=== PATIENT | female | born 1990 | race Caucasian/White ===

== ENCOUNTER → 2016-08-05 | Outpatient (REF) | payer OTHER ==
[~2016-08-05] MED LIST: ACET50TA PO; IBUP60TA PO; PRENTAB40 PO
== END ==
LOC: M LAB REF 17:16
PROVIDERS: ATTEND Advanced Practice Midwife
DX: Z12.4 Encounter for screening for malignant neoplasm of cervix (principal)

== ENCOUNTER → 2016-08-05 | Outpatient (REF) | payer OTHER ==
[2016-08-05 11:30] LABS: ALBUMIN 4.2 GM/DL (3.2-5.2); ALBUMIN/GLOBULIN RATIO 1.24 (1.00-1.93); ALKALINE PHOSPHATASE 63 U/L (45-117); ALT/SGPT 21 U/L (12-78); ANION GAP 9 MEQ/L (8-16); AST/SGOT 11 U/L (15-37); BILIRUBIN,TOTAL 0.7 MG/DL (0.2-1.0); BLOOD UREA NITROGEN 11 MG/DL (7-18); CALCIUM LEVEL 8.9 MG/DL (8.5-10.1); CARBON DIOXIDE LEVEL 26 MEQ/L (21-32); CHLORIDE LEVEL 104 MEQ/L (98-107); CHOLESTEROL LEVEL 154 MG/DL (<200); FREE T4 1.15 NG/DL (0.76-1.46); GLOMERULAR FILTRATION RATE > 60.0 (>60); GLUCOSE, FASTING 90 MG/DL (70-105); POTASSIUM SERUM 3.4 MEQ/L (3.5-5.1); SODIUM LEVEL 139 MEQ/L (136-145); TOTAL PROTEIN 7.6 GM/DL (6.4-8.2); TRIGLYCERIDES LEVEL 80 MG/DL (<150)
== END ==
LOC: M SFHCCLAY 08:42
PROVIDERS: ATTEND Family Medicine
DX: Z00.00 Encounter for general adult medical examination without abnormal findings (principal)

== ENCOUNTER → 2016-08-11 | Outpatient (CLI) | payer OTHER ==
[2016-08-11 21:29] LABS: ESTRADIOL 24.3 PG/ML; LUTEINIZING HORMONE 3.4 mIU/mL; PROLACTIN 4.8 NG/ML
[2016-08-11 21:30] LABS: FOLLICLE STIMULATING HORMONE 7.1 mIU/mL
== END ==
LOC: M WUC 16:59
PROVIDERS: ATTEND Advanced Practice Midwife
DX: N92.6 Irregular menstruation, unspecified (principal)

== ENCOUNTER → 2016-08-29 | Outpatient (CLI) | payer OTHER | LOC: M WUC 16:06 | PROVIDERS: ATTEND Advanced Practice Midwife | DX: N92.6 Irregular menstruation, unspecified (principal) ==

== ENCOUNTER → 2016-09-08 | Outpatient (REF) | payer OTHER ==
[2016-09-08 14:15] LABS: ALBUMIN 3.9 GM/DL (3.2-5.2); ALBUMIN/GLOBULIN RATIO 1.22 (1.00-1.93); ALKALINE PHOSPHATASE 70 U/L (45-117); ALT/SGPT 26 U/L (12-78); ANION GAP 8 MEQ/L (8-16); AST/SGOT 22 U/L (15-37); BILIRUBIN,TOTAL 0.3 MG/DL (0.2-1.0); BLOOD UREA NITROGEN 15 MG/DL (7-18); CARBON DIOXIDE LEVEL 26 MEQ/L (21-32); CHLORIDE LEVEL 108 MEQ/L (98-107); CREATININE FOR GFR 0.82 MG/DL (0.55-1.02); GLOMERULAR FILTRATION RATE > 60.0 (>60); GLUCOSE, FASTING 83 MG/DL (70-105); POTASSIUM SERUM 4.4 MEQ/L (3.5-5.1); SODIUM LEVEL 142 MEQ/L (136-145); TOTAL PROTEIN 7.1 GM/DL (6.4-8.2)
[2016-09-08 14:18] LABS: BASO % 0.3 % (0.0-1.0); EOS # 0.1 K/mm3 (0.0-0.50); EOS % 2.4 % (0.0-3.0); LARGE UNSTAINED CELL # 0.1 K/mm3 (0.0-0.4); LARGE UNSTAINED CELL % 1.9 % (0.0-4.0); LYMPH # 1.6 K/mm3 (1.5-6.5); LYMPH % 29.5 % (24.0-44.0); MEAN CORPUSCULAR HGB CONC 33.6 g/dl (32.0-36.5); MEAN CORPUSCULAR VOLUME 92.5 fl (80.0-96.0); MONO # 0.3 K/mm3 (0.0-0.8); MONO % 5.4 % (0.0-5.0); NEUTROPHILS # 3.2 K/mm3 (1.8-7.7); NEUTROPHILS % 60.4 % (36.0-66.0); PLATELET COUNT, AUTOMATED 219 k/mm3 (150-450); RED CELL DISTRIBUTION WIDTH 12.5 % (11.5-14.5); WHITE BLOOD COUNT 5.2 K/mm3 (4.0-10.0)
[2016-09-08 15:12] LABS: ERYTHROCYTE SEDIMENTATION RATE 4 mm/hr (0-20)
== END ==
LOC: M LABNEURO 10:01
PROVIDERS: ATTEND Psychiatry & Neurology Neurology
DX: R56.9 Unspecified convulsions (principal)

== ENCOUNTER → 2017-01-26 | Outpatient (CLI) | payer OTHER | LOC: M SMT 13:06 | PROVIDERS: ATTEND Advanced Practice Midwife | DX: O20.0 Threatened abortion (principal) ==

== ENCOUNTER → 2017-01-28 | Outpatient (CLI) | payer OTHER | LOC: M SMT 10:13 | PROVIDERS: ATTEND Advanced Practice Midwife | DX: O20.0 Threatened abortion (principal) ==

== ENCOUNTER → 2017-03-11 | Outpatient (CLI) | payer OTHER ==
[2017-03-11 12:56] LABS: BASO % 0.4 % (0.0-1.0); EOS # 0.1 K/mm3 (0.0-0.50); EOS % 1.4 % (0.0-3.0); LARGE UNSTAINED CELL # 0.1 K/mm3 (0.0-0.4); LARGE UNSTAINED CELL % 1.9 % (0.0-4.0); LYMPH # 1.6 K/mm3 (1.5-6.5); LYMPH % 32.9 % (24.0-44.0); MEAN CORPUSCULAR HEMOGLOBIN 30.6 pg (27.0-33.0); MEAN CORPUSCULAR HGB CONC 33.8 g/dl (32.0-36.5); MEAN CORPUSCULAR VOLUME 90.6 fl (80.0-96.0); MONO # 0.3 K/mm3 (0.0-0.8); MONO % 5.3 % (0.0-5.0); NEUTROPHILS # 2.9 K/mm3 (1.8-7.7); PLATELET COUNT, AUTOMATED 210 k/mm3 (150-450); RED CELL DISTRIBUTION WIDTH 12.2 % (11.5-14.5); WHITE BLOOD COUNT 4.9 K/mm3 (4.0-10.0)
[2017-03-11 14:12] LABS: HBsAg Prenatal NEGATIVE (NEGATIVE)
== END ==
LOC: M SMT 08:36
PROVIDERS: ATTEND Advanced Practice Midwife
DX: Z34.81 Encounter for supervision of other normal pregnancy, first trimester (principal)

== ENCOUNTER → 2017-06-05 | Outpatient (CLI) | payer OTHER ==
--- NOTE | 2017-06-05 16:25 | REP ---
Clinical: Anatomical evaluation. Comparison: None . Findings: Examination demonstrates a single live intrauterine in breech presentation. motion is identified by technologist. Placenta is noted anteriorly and grade zero without evidence for placenta previa or abruption. Amniotic fluid volume is normal. Cervix measures 4.2 cm in length and appears closed. No evidence for nuchal cord. Gestational age by current measurements 19 weeks 6 days with LANI 10/24/2017 . FHR equals 150 beats per minute. BPD 4.8 cm 20 weeks 3 days HC 17.3 cm 19 weeks 6 days AC 14.0 cm 19 weeks 3 days FL 3.3 cm 20 weeks 2 days HL 3.1 cm 20 weeks 1 day HC/AC ratio 1.24 Estimated weight 315 grams ( 47th percentile). Anatomical assessment demonstrates normal structures including cranium, choroid plexus, cavum, cerebellum/posterior fossa, nose and lips, lungs, four-chamber heart/ventricular outflow tracts, diaphragm, stomach, cord insertion/three-vessel cord, kidneys/bladder, spine, and extremities. Impression: Single live intrauterine in breech presentation demonstrating appropriate interval growth. Anatomical assessment is essentially complete and normal. (Limited evaluation of the facial profile noted.) Signed by Shai Zaragoza MD 06/05/2017 04:17 P
== END ==
LOC: M SMT 14:56
PROVIDERS: ATTEND Advanced Practice Midwife
DX: Z34.82 Encounter for supervision of other normal pregnancy, second trimester (principal); Z3A.19 19 weeks gestation of pregnancy

== ENCOUNTER → 2017-07-10 | Outpatient (CLI) | payer OTHER ==
--- NOTE | 2017-07-10 16:11 | REP ---
Clinical: Anatomical evaluation. Comparison: 06/05/2017 . Findings: Examination demonstrates a single live intrauterine in three presentation. motion is identified by technologist. Placenta is noted anteriorly and grade one without evidence for placenta previa or abruption. Amniotic fluid volume is normal. Cervix measures 5.3 cm in length and appears closed. No evidence for nuchal cord. Gestational age by LMP 24 weeks 6 days with LANI 10/24/2017 . Gestational age by current measurements 25 weeks 2 days with LANI 10/21/2017 . FHR equals 150 beats per minute. Estimated weight 824 grams ( 65th percentile). Anatomical assessment demonstrates normal structures including cranium, choroid plexus, cavum, cerebellum/posterior fossa, facial features, lungs, ventricular outflow tracts, diaphragm, stomach, cord insertion/three-vessel cord, kidneys/bladder, spine, and extremities. Impression: Single live intrauterine in breech presentation demonstrating appropriate interval growth. In conjunction with prior examination anatomical assessment is complete and normal. Signed by Shai Zaragoza MD 07/10/2017 04:04 P
== END ==
LOC: M SMT 15:01
PROVIDERS: ATTEND Advanced Practice Midwife
DX: Z34.82 Encounter for supervision of other normal pregnancy, second trimester (principal); Z3A.24 24 weeks gestation of pregnancy

== ENCOUNTER → 2017-08-03 | Outpatient (CLI) | payer OTHER ==
[2017-08-03 19:41] LABS: HEMATOCRIT 36.5 % (36.0-47.0); HEMOGLOBIN 12.1 g/dl (12.0-16.0); MEAN CORPUSCULAR HEMOGLOBIN 31.4 pg (27.0-33.0); MEAN CORPUSCULAR HGB CONC 33.2 g/dl (32.0-36.5); MEAN CORPUSCULAR VOLUME 94.8 fl (80.0-96.0); PLATELET COUNT, AUTOMATED 229 10^3/uL (150-450); RED BLOOD COUNT 3.85 10^6/uL (4.00-5.40); RED CELL DISTRIBUTION WIDTH 13.1 % (11.5-14.5); WHITE BLOOD COUNT 9.4 10^3/uL (4.0-10.0)
[2017-08-03 21:18] LABS: GLUCOSE CHALLENGE TEST 1 HOUR 97 MG/DL (LESS THAN 140)
[2017-08-04 08:45] LABS: TYPE AND SCREEN 1 1
== END ==
LOC: M WUC 14:56
PROVIDERS: Family Medicine
DX: Z34.82 Encounter for supervision of other normal pregnancy, second trimester (principal); Z3A.00 Weeks of gestation of pregnancy not specified
CPT/HCPCS: 82950

== ENCOUNTER 2017-08-21 11:54 | Outpatient (CLI) | payer OTHER | END 2017-08-21 12:51 | disposition home or self-care (01) | LOC: M LDO 11:54 | DX: O22.13 Genital varices in pregnancy, third trimester (principal); Z3A.29 29 weeks gestation of pregnancy ==

== ENCOUNTER → 2017-09-07 | Outpatient (REF) | payer OTHER | LOC: M LAB REF 14:53 | DX: J10.1 Influenza due to other identified influenza virus with other respiratory manifestations (principal) ==

== ENCOUNTER → 2017-10-09 | Outpatient (REF) | payer OTHER | LOC: M LAB REF 17:19 | DX: Z34.83 Encounter for supervision of other normal pregnancy, third trimester (principal) ==

== ENCOUNTER 2017-11-01 09:53 | Inpatient (IN) | payer OTHER ==
[2017-11-01] MEDS: LACTATED RINGER'S 1000 ML IV (10:20)
[2017-11-01 10:49] LABS: HEMATOCRIT 35.3 % (36.0-47.0); HEMOGLOBIN 12.3 g/dl (12.0-15.5); MEAN CORPUSCULAR HEMOGLOBIN 30.9 pg (27.0-33.0); MEAN CORPUSCULAR HGB CONC 34.8 g/dl (32.0-36.5); MEAN CORPUSCULAR VOLUME 88.7 fl (80.0-96.0); PLATELET COUNT, AUTOMATED 160 10^3/uL (150-450); RED BLOOD COUNT 3.98 10^6/uL (4.00-5.40); RED CELL DISTRIBUTION WIDTH 13.4 % (11.5-14.5); WHITE BLOOD COUNT 7.3 10^3/uL (4.0-10.0)
[2017-11-01] MEDS ORDERED: FENTANYL 2MCG/ML ROPIVACAINE 0.2% IN 0.9% NACL 200ML IVBAG As Ordered (11:03)
[2017-11-01] MEDS: LR 1,000 ML IV ×3 (12:01→22:06)
[2017-11-01] MEDS ORDERED: ONDANSETRON 4MG/2ML VIAL (J2405) IV ×2 (12:30→22:15)
[2017-11-01] MEDS ORDERED: EPIDURAL/PCA KEYS XX (12:30)
[2017-11-01] MEDS ORDERED: REFRIGERATOR IV KEYS XX (12:30)
[2017-11-01] MEDS ORDERED: ePHEDrine SULFATE 25 MG/5 ML(5MG/ML) SYRINGE IV (12:30)
[2017-11-01] MEDS: FENTANYL/ROPIVACAINE/NACL BAG 200 ML EPIDURAL (12:30)
[2017-11-01] MEDS ORDERED: LACTATED RINGER'S 1000 ML IV (12:30)
[2017-11-01] MEDS ORDERED: EPIDURAL COMMENT XX (12:30)
[2017-11-01] MEDS ORDERED: NALOXONE INJ 0.4 MG/1 ML VIAL (J2310) IV (12:30)
[2017-11-01] MEDS: diphenhydrAMINE INJ 50MG/ML VIAL (J1200) IV ×2 (15:59→20:30)
[2017-11-01] MEDS ORDERED: OXYTOCIN DRIP 30 UNITS in APPROPRIATE DILUENT 1 EA IV (16:15)
[2017-11-01] MEDS: OXYTOCIN DRIP 30 UNITS in APPROPRIATE DILUENT 1 EA IV (22:06)
[2017-11-01] MEDS ORDERED: PROMETHAZINE 25 MG TAB PO (22:15)
[2017-11-01] MEDS ORDERED: DIBUCAINE 1% OINTMENT 30GM TOP (22:15)
[2017-11-01] MEDS: ACETAMINOPHEN 500 MG TAB PO (22:45)
[2017-11-01] MEDS: MEASLES,MUMPS,RUBELLA VACCINE INJ (MMR-II) (90707) SC (23:53)
[2017-11-02] MEDS: IBUPROFEN 800 MG TAB PO ×3 (00:20→21:52)
[2017-11-02] MEDS: ACETAMINOPHEN 500 MG TAB PO (06:28)
[2017-11-02] MEDS: PRENATAL VITAMINS CHEWABLE TABLET PO (08:16)
[2017-11-02] MEDS ORDERED: SLF 3 ML SYR IV (08:45)
[2017-11-02 11:15] LABS: FETAL SCREEN PROF. 1 1
[2017-11-02] MEDS: RHOGAM 300 MCG (1500 IU) INJ (J2790) IM (11:27)
[2017-11-02] MEDS: SLF 3 ML SYR IV ×2 (14:16→21:52)
[2017-11-02] MEDS: DOCUSATE SODIUM 100 MG CAP PO (21:51)
[2017-11-03] MEDS: SLF 3 ML SYR IV (06:00)
[2017-11-03] MEDS: PRENATAL VITAMINS CHEWABLE TABLET PO (07:50)
== END 2017-11-03 11:20 | disposition home or self-care (01) | DRG 775 ==
LOC: M LDO 09:53 → M LDI 10:28 → M OBS 23:35
PROC: 10E0XZZ Delivery of Products of Conception, External Approach (ICD-10-PCS; principal; 2017-11-01)
PROC: 0KQM0ZZ Repair Perineum Muscle, Open Approach (ICD-10-PCS; 2017-11-01)
PROC: 10907ZC Drainage of Amniotic Fluid, Therapeutic from Products of Conception, Via Natural or Artificial Opening (ICD-10-PCS; 2017-11-01)
DX: O70.1 Second degree perineal laceration during delivery (principal); Z3A.40 40 weeks gestation of pregnancy; Z37.0 Single live birth

== ENCOUNTER → 2017-11-24 | Outpatient (REF) | payer OTHER | LOC: M LAB REF 17:20 | DX: N39.0 Urinary tract infection, site not specified (principal) ==

== ENCOUNTER → 2018-06-16 | Outpatient (CLI) | payer OTHER | LOC: M RAD 16:57 | DX: M51.86 Other intervertebral disc disorders, lumbar region (principal); R20.2 Paresthesia of skin; Z53.8 Procedure and treatment not carried out for other reasons ==

== ENCOUNTER → 2018-07-15 | Outpatient (CLI) | payer OTHER ==
[~2018-07-15] MED LIST changes: -ACET50TA PO; +IBUP-1114 PO; +MAPA500T2 PO; +TUMS500C PO
--- NOTE | 2018-07-15 08:50 | REP ---
MRI lumbar spine without contrast: History: Worsening low back pain and right-sided paresthesias. Bulging discs at 4-5 and 5-1 on prior study from February 02, 2016. Technique: Sagittal and axial T1 and T2-weighted scans are acquired in the usual fashion with and without fat saturation. Sequences include spin echo, turbo spin-echo, and STIR imaging sequences. MRI findings: There is straightening of the normal lumbar lordosis. Tiny hemangiomas are visible at L2 and L3 unchanged. Cortical and medullary bone signal intensity are otherwise normal. The tip of the conus remains normal in position and appearance at L1-L2. No extra vertebral abnormality is observed. The L4-5 disc shows minimal disc bulging. No thecal sac compression is seen. No neural foraminal narrowing is noted. At L5-S1, today's MR images demonstrate a large right paracentral focal disc protrusion which indents and effaces the right ventral margin of the thecal sac and subtly compresses the exiting right S1 root sleeve. This is a significant change from the prior study which showed a central disc bulging pattern. No neural foraminal encroachment is appreciated. There is no evidence of spondylolysis or spondylolisthesis. Impression: Large right paracentral L5-S1 disc protrusion with right S1 root sleeve compression and mild thecal sac compression. Electronically Signed by Rafita Burrell MD 07/15/2018 08:51 A
== END ==
LOC: M RAD 07:26
PROVIDERS: ATTEND Family Medicine
DX: M51.26 Other intervertebral disc displacement, lumbar region (principal)

== ENCOUNTER → 2018-08-11 | Outpatient (REF) | payer OTHER ==
[2018-08-11 20:05] LABS: APPEARANCE, URINE CLOUDY (CLEAR); BACTERIA, URINE AUTO 1+ (NEGATIVE); BILIRUBIN, URINE AUTO NEGATIVE (NEGATIVE); BLOOD, URINE BLOOD NEGATIVE (NEGATIVE); COLOR, URINE YELLOW (YELLOW); GLUCOSE, URINE (UA) AUTO NEGATIVE (NEGATIVE); KETONE, URINE AUTO NEGATIVE (NEGATIVE); LEUKOCYTE ESTERASE, URINE AUTO 3+ (NEGATIVE); NITRITE, URINE AUTO NEGATIVE (NEGATIVE); PROTEIN, URINE AUTO NEGATIVE (NEGATIVE); RBC, URINE AUTO 4 /HPF (0-3); SPECIFIC GRAVITY URINE AUTO 1.018 (1.002-1.035); SQUAMOUS EPITHELIAL CELL UR AU 8 /HPF (0-6); UROBILINOGEN, URINE AUTO 0.2 mg/dL (0.0-2.0); WBC, URINE AUTO 118 /HPF (0-3)
== END ==
LOC: M LAB REF 15:22
PROVIDERS: ATTEND Physician Assistant
DX: N39.0 Urinary tract infection, site not specified (principal)

== ENCOUNTER → 2018-08-12 | Outpatient (CLI) | payer OTHER ==
[2018-08-12 20:26] LABS: ESTRADIOL 90.5 PG/ML; PROGESTERONE 9.28 NG/ML
== END ==
LOC: M WUC 17:36
PROVIDERS: ATTEND Advanced Practice Midwife
DX: Z31.61 Procreative counseling and advice using natural family planning (principal)

== ENCOUNTER → 2018-08-19 | Outpatient (CLI) | payer OTHER ==
--- NOTE | 2018-08-19 16:01 | REP ---
PELVIC ULTRASOUND: Real-time sonographic evaluation of the pelvis is performed utilizing transabdominal and endovaginal technique. Bladder measures 9.4 x 9.7 x 7.6 cm. Uterus measures 8.6 x 3.7 x 5.9 cm. Endometrial thickness is 17 mm. Ovaries are normal in size and echotexture, right ovary measuring 3.6 x 2.1 x 2.7 cm and left ovary 4.2 x 2.0 x 3.5 cm. There is no adnexal mass or free fluid. There is no torsion of either ovary, resistive index right ovary 0.42 and left ovary 0.47. IMPRESSION: Mildly prominent endometrial thickness at 17 mm. No mass or free fluid.
== END ==
LOC: M WHC 13:53
PROVIDERS: ATTEND Advanced Practice Midwife
DX: N94.0 Mittelschmerz (principal)

== ENCOUNTER → 2018-08-31 | Outpatient (REF) | payer OTHER ==
[2018-08-31 15:03] LABS: APPEARANCE, URINE CLOUDY (CLEAR); BACTERIA, URINE AUTO 2+ (NEGATIVE); BILIRUBIN, URINE AUTO NEGATIVE (NEGATIVE); BLOOD, URINE BLOOD 1+ (NEGATIVE); COLOR, URINE YELLOW (YELLOW); GLUCOSE, URINE (UA) AUTO NEGATIVE (NEGATIVE); KETONE, URINE AUTO NEGATIVE (NEGATIVE); LEUKOCYTE ESTERASE, URINE AUTO 3+ (NEGATIVE); MUCUS, URINE SMALL (NEGATIVE); NITRITE, URINE AUTO NEGATIVE (NEGATIVE); PROTEIN, URINE AUTO NEGATIVE (NEGATIVE); RBC, URINE AUTO 4 /HPF (0-3); SPECIFIC GRAVITY URINE AUTO 1.021 (1.002-1.035); SQUAMOUS EPITHELIAL CELL UR AU 18 /HPF (0-6); TRANSITIONAL EPITHELIAL AUTO <1 /HPF; UROBILINOGEN, URINE AUTO 0.2 mg/dL (0.0-2.0); WBC, URINE AUTO 135 /HPF (0-3)
== END ==
LOC: M LAB REF 14:11
PROVIDERS: ATTEND Physician Assistant Medical
DX: N39.0 Urinary tract infection, site not specified (principal)

== ENCOUNTER → 2018-10-27 | Outpatient (REF) | payer OTHER ==
[~2018-10-27] MED LIST changes: +IBUP600T42 PO; -IBUP60TA PO
[2018-10-27 19:38] LABS: APPEARANCE, URINE HAZY (CLEAR); BACTERIA, URINE AUTO 1+ (NEGATIVE); BILIRUBIN, URINE AUTO NEGATIVE (NEGATIVE); BLOOD, URINE BLOOD 1+ (NEGATIVE); COLOR, URINE YELLOW (YELLOW); GLUCOSE, URINE (UA) AUTO NEGATIVE (NEGATIVE); KETONE, URINE AUTO NEGATIVE (NEGATIVE); LEUKOCYTE ESTERASE, URINE AUTO 3+ (NEGATIVE); MUCUS, URINE SMALL (NEGATIVE); NITRITE, URINE AUTO NEGATIVE (NEGATIVE); PROTEIN, URINE AUTO NEGATIVE (NEGATIVE); RBC, URINE AUTO 2 /HPF (0-3); SQUAMOUS EPITHELIAL CELL UR AU 3 /HPF (0-6); UROBILINOGEN, URINE AUTO 0.2 mg/dL (0.0-2.0); WBC, URINE AUTO 136 /HPF (0-3)
== END ==
LOC: M LAB REF 18:25
PROVIDERS: ATTEND Physician Assistant
DX: N39.0 Urinary tract infection, site not specified (principal)

== ENCOUNTER → 2018-11-26 | Outpatient (REF) | payer OTHER | LOC: M LAB REF 17:18 | PROVIDERS: ATTEND Advanced Practice Midwife | DX: J02.9 Acute pharyngitis, unspecified (principal) ==

== ENCOUNTER → 2018-11-30 | Outpatient (CLI) | payer OTHER ==
--- NOTE | 2018-11-30 07:24 | REP ---
Clinical: Threatened Comparison: None . Findings: Examination demonstrates a single live intrauterine in variable presentation. motion is identified by technologist. Placenta is noted posterior and grade grade zero without evidence for placenta previa or abruption. Amniotic fluid volume is normal. Cervix measures 3.5 cm in length and appears closed. No evidence for nuchal cord. Gestational age by LMP 14 weeks 6 days with LANI 05/25/2019 . Gestational age by current measurements 15 weeks 3 days with LANI 05/21/2019 . FHR equals 160 beats per minute. Estimated weight 118 grams ( 56th percentile). Anatomical assessment demonstrates normal structures including cranium, choroid plexus, cavum, cerebellum/posterior fossa, facial features, diaphragm, stomach, cord insertion/three-vessel cord, kidneys/bladder, spine, and lower extremities. Impression: Single live intrauterine in variable presentation with biometrical measurements at 15 weeks 3 days gestational age. Complete anatomical assessment should be performed at 19-20 weeks. Electronically Signed by Shai Zaragoza MD 11/30/2018 07:15 A
== END ==
LOC: M RAD 06:24
PROVIDERS: ATTEND Advanced Practice Midwife
DX: O20.0 Threatened abortion (principal); Z3A.15 15 weeks gestation of pregnancy

== ENCOUNTER → 2018-12-22 | Outpatient (CLI) | payer OTHER ==
--- NOTE | 2018-12-22 18:20 | REP ---
Clinical: Anatomical evaluation. Comparison: 11/30/2018 . Findings: Examination demonstrates a single live intrauterine in cephalic presentation. motion is identified by technologist. Marginal placenta is 5 mm from the closed internal os, anterior and grade zero without evidence for placenta previa or abruption. Amniotic fluid volume is normal. Cervix measures 3.9 cm in length and appears closed. No evidence for nuchal cord. Gestational age by LMP 18 weeks 0 days with LANI 05/25/2019 . Gestational age by current measurements 18 weeks 3 days with LANI 05/22/2019 . FHR equals 160 beats per minute. Estimated weight 234 grams ( 60 percentile). Anatomical assessment demonstrates normal structures including cranium, choroid plexus, cavum, cerebellum/posterior fossa, facial features, lungs, four-chamber heart/ventricular outflow tracts, diaphragm, stomach, cord insertion/three-vessel cord, kidneys/bladder, spine, and extremities. Impression: Single live intrauterine in cephalic presentation demonstrating appropriate interval growth. 2. Marginal placenta previa approximately 5 mm from the closed internal os. 3. Anatomical assessment is complete and normal. Electronically Signed by Shai Zaragoza MD 12/22/2018 06:11 P
== END ==
LOC: M RAD 16:14
PROVIDERS: ATTEND Specialist
DX: O44.22 Partial placenta previa NOS or without hemorrhage, second trimester (principal); Z36.89 Encounter for other specified antenatal screening; Z3A.18 18 weeks gestation of pregnancy

== ENCOUNTER → 2019-02-25 | Outpatient (CLI) | payer OTHER ==
[~2019-02-25] MED LIST changes: +LORA-674 PO
[2019-02-25 14:11] LABS: HEMATOCRIT 36.6 % (36.0-47.0); HEMOGLOBIN 12.1 g/dl (12.0-15.5); MEAN CORPUSCULAR HEMOGLOBIN 31.1 pg (27.0-33.0); MEAN CORPUSCULAR HGB CONC 33.1 g/dl (32.0-36.5); MEAN CORPUSCULAR VOLUME 94.1 fl (80.0-96.0); PLATELET COUNT, AUTOMATED 209 10^3/uL (150-450); RED BLOOD COUNT 3.89 10^6/uL (4.00-5.40); WHITE BLOOD COUNT 6.6 10^3/uL (4.0-10.0)
== END ==
LOC: M SMT 08:30
PROVIDERS: ATTEND Advanced Practice Midwife
DX: O99.512 Diseases of the respiratory system complicating pregnancy, second trimester (principal)

== ENCOUNTER → 2019-03-03 | Outpatient (CLI) | payer OTHER ==
[~2019-03-03] MED LIST changes: -LORA-674 PO
== END ==
LOC: M LAB 07:12
PROVIDERS: ATTEND Advanced Practice Midwife
DX: R73.02 Impaired glucose tolerance (oral) (principal)

== ENCOUNTER → 2019-03-14 | Outpatient (CLI) | payer OTHER ==
--- NOTE | 2019-03-15 11:48 | REP ---
There are lesser obstetric ultrasound for placental localization amniotic fluid assessment: There is a single intrauterine gestation in a vertex presentation. heart rate is 133 beats per minute. The placenta is posterior and extends into the lower uterine segment into a marginal previa location. The inferior tip of the placenta is 9 mm from the internal cervical os. Subjectively the amniotic fluid volume is normal. Amniotic fluid index is 13.7/9.1 - 23.3. Gestational age by the first ultrasound is 30 weeks 2 days/LANI 05/21/2019. Gestational age by LMP is 29 weeks 5 days/LANI 07/25/2018. Umbilical artery Doppler assessment: S/D ratio 2.6 a (2.30-3.30) Resistive Index 0.63 (0.59-0.75 Diastolic Velocity 17.2. The (>10 cm/sec) Electronically Signed by Carroll Castillo MD 03/14/2019 09:29 A
== END ==
LOC: M RAD 07:29
PROVIDERS: ATTEND Advanced Practice Midwife
DX: Z34.83 Encounter for supervision of other normal pregnancy, third trimester (principal); Z3A.29 29 weeks gestation of pregnancy

== ENCOUNTER → 2019-04-13 | Outpatient (CLI) | payer OTHER ==
--- NOTE | 2019-04-14 02:16 | REP ---
Clinical: History of placenta previa. Comparison: 03/14/2019. Technique: Transabdominal and transvaginal obstetrical ultrasound. Findings: Single live intrauterine in cephalic presentation noted. heart rate equals 140 beats per minute. Placenta is identified posteriorly and grade 0. Placental tip 1.5 cm from the closed internal os. No funneling. Cervix measures 3.9 cm in length and appears closed. Impression: Posterior grade 0 placenta 1.5 cm from the closed internal os. Electronically Signed by Shai Zaragoza MD 04/14/2019 02:07 A
== END ==
LOC: M RAD 16:24
PROVIDERS: ATTEND Advanced Practice Midwife
DX: O44.23 Partial placenta previa NOS or without hemorrhage, third trimester (principal)

== ENCOUNTER → 2019-04-28 | Outpatient (REF) | payer OTHER ==
[~2019-04-28] MED LIST changes: +LORA-674 PO
== END ==
LOC: M LAB REF 17:22
PROVIDERS: ATTEND Advanced Practice Midwife
DX: Z36.85 Encounter for antenatal screening for Streptococcus B (principal)

== ENCOUNTER → 2019-05-03 | Outpatient (CLI) | payer OTHER | LOC: M LAB 16:22 | PROVIDERS: ATTEND Advanced Practice Midwife | DX: Z34.03 Encounter for supervision of normal first pregnancy, third trimester (principal); Z3A.00 Weeks of gestation of pregnancy not specified ==

== ENCOUNTER → 2019-05-11 | Outpatient (CLI) | payer OTHER ==
--- NOTE | 2019-05-11 18:55 | REP ---
Clinical: Growth evaluation and cervical length. Comparison: 04/13/2019 . Findings: Examination demonstrates a single live intrauterine in cephalic presentation. motion is identified by technologist. Placenta is noted posterior and grade I I I without evidence for placenta previa or abruption. Amniotic fluid volume is normal. Cervix measures 4.2 cm in length and appears closed. No evidence for nuchal cord. Gestational age by LMP 38 weeks 0 days with LANI 05/25/2019 . Gestational age by current measurements 36 weeks 6 days with LANI 06/02/2019 . FHR equals 140 beats per minute. BPD 8.7 cm 35 weeks 1 day HC 32.7 cm 37 weeks 1 day AC 32.0 cm 35 weeks 6 days FL 7.4 cm 37 weeks 4 days HL 6.6 cm 38 weeks 2 days HC/AC ratio 1.02 Estimated weight 2927 grams ( 32nd percentile). Umbilical cord SD ratio: 2.42 Impression: Single live advanced gestation in cephalic presentation demonstrating appropriate interval growth. Electronically Signed by Shai Zaragoza MD 05/11/2019 06:46 P
== END ==
LOC: M RAD 16:13
PROVIDERS: ATTEND Advanced Practice Midwife
DX: O44.43 Low lying placenta NOS or without hemorrhage, third trimester (principal); Z3A.36 36 weeks gestation of pregnancy

== ENCOUNTER → 2019-05-20 | Outpatient (CLI) | payer OTHER ==
[2019-05-20 17:19] LABS: HEMATOCRIT 40.4 % (36.0-47.0); HEMOGLOBIN 13.3 g/dl (12.0-15.5); MEAN CORPUSCULAR HEMOGLOBIN 32.1 pg (27.0-33.0); MEAN CORPUSCULAR HGB CONC 32.9 g/dl (32.0-36.5); MEAN CORPUSCULAR VOLUME 97.6 fl (80.0-96.0); PLATELET COUNT, AUTOMATED 194 10^3/uL (150-450); RED BLOOD COUNT 4.14 10^6/uL (4.00-5.40)
[2019-05-20 17:39] LABS: TOTAL PROTEIN,RANDOM URINE 14.7 MG/DL (0.0-12.0)
[2019-05-20 17:41] LABS: ALT/SGPT 35 U/L (12-78); BILIRUBIN,TOTAL 0.4 MG/DL (0.2-1.0); CREATININE FOR GFR 0.57 MG/DL (0.55-1.30); GLOMERULAR FILTRATION RATE > 60.0 (>60); LDH LACTATE DEHYDROGENASE 184 U/L (84-246)
[2019-05-23 07:18] LABS: CREATININE,RANDOM URINE 60.5 MG/DL
[2019-05-23 07:19] LABS: URIC ACID 3.3 MG/DL (2.6-6.0); WHITE BLOOD COUNT 7.8 10^3/uL (4.0-10.0)
== END ==
LOC: M LAB 16:26
PROVIDERS: ATTEND Advanced Practice Midwife
DX: O16.3 Unspecified maternal hypertension, third trimester (principal); Z3A.00 Weeks of gestation of pregnancy not specified

== ENCOUNTER 2019-05-26 10:53 | Inpatient (IN) | payer OTHER ==
[2019-05-26] VITALS (27 sets, daily range): BP systolic 113–156; BP diastolic 65–99
[~2019-05-26] VITALS: Ht 180.3 cm; Wt 91.8 kg
[2019-05-26 11:53] LABS: HEMATOCRIT 37.5 % (36.0-47.0); HEMOGLOBIN 12.8 g/dl (12.0-15.5); MEAN CORPUSCULAR HEMOGLOBIN 32.7 pg (27.0-33.0); MEAN CORPUSCULAR HGB CONC 34.1 g/dl (32.0-36.5); MEAN CORPUSCULAR VOLUME 95.7 fl (80.0-96.0); PLATELET COUNT, AUTOMATED 171 10^3/uL (150-450); RED BLOOD COUNT 3.92 10^6/uL (4.00-5.40); WHITE BLOOD COUNT 7.6 10^3/uL (4.0-10.0)
[2019-05-26] MEDS ORDERED: LR 1,000 ML IV SCH (12:29)
[2019-05-26] MEDS ORDERED: OXYTOCIN DRIP 30 UNITS in IV 1 EA IV SCH (12:30)
[2019-05-26] MEDS ORDERED: FENTANYL 2MCG/ML ROPIVACAINE 0.2% IN 0.9% NACL 100ML IVBAG As Ordered ONE (13:33)
[2019-05-26] MEDS ORDERED: NALOXONE INJ 0.4 MG/1 ML VIAL (J2310) IV PRN (14:45)
[2019-05-26] MEDS ORDERED: EPIDURAL/PCA KEYS XX PRN (14:45)
[2019-05-26] MEDS ORDERED: ePHEDrine SULFATE 25 MG/5 ML(5MG/ML) SYRINGE IV PRN (14:45)
[2019-05-26] MEDS ORDERED: EPIDURAL COMMENT XX SCH (14:45)
[2019-05-26] MEDS ORDERED: ONDANSETRON 4MG/2ML VIAL (J2405) IV PRN ×2 (14:45→17:45)
[2019-05-26] MEDS ORDERED: REFRIGERATOR IV KEYS XX PRN (14:45)
[2019-05-26] MEDS ORDERED: diphenhydrAMINE INJ 50MG/ML VIAL (J1200) IV PRN (14:45)
[2019-05-26] MEDS ORDERED: LACTATED RINGER'S 1000 ML IV PRN (14:45)
[2019-05-26] MEDS ORDERED: FENTANYL/ROPIVACAINE/NACL BAG 100 ML EPIDURAL SCH (14:45)
[2019-05-26] MEDS ORDERED: DOCUSATE SODIUM 100 MG CAP PO PRN (17:45)
[2019-05-26] MEDS ORDERED: RHOGAM 300 MCG (1500 IU) INJ (J2790) IM SCH (17:45)
[2019-05-26] MEDS ORDERED: IBUPROFEN 600 MG TAB PO PRN (17:45)
[2019-05-26] MEDS ORDERED: ACETAMINOPHEN TAB 650MG DOSE (2X325MG) PO PRN (17:45)
[2019-05-26] MEDS ORDERED: METHYLERGONOVINE MALEATE 0.2 MG TAB PO PRN (17:45)
[2019-05-26] MEDS ORDERED: MEASLES,MUMPS,RUBELLA VACCINE INJ (MMR-II) (90707) SC SCH (17:45)
[2019-05-26] MEDS ORDERED: DIBUCAINE 1% OINTMENT 30GM TOP PRN (17:45)
[2019-05-26] MEDS ORDERED: OXYTOCIN DRIP 30 UNITS in IV 1 EA IV ONE (17:45)
[2019-05-26] MEDS ORDERED: IBUPROFEN 800 MG TAB PO PRN (17:45)
--- NOTE | 2019-05-26 17:51 | HPE ---
DATE OF ADMISSION: 05/26/2019 A 29-year-old 6, para 2-0-3-2 female at 40-1/7 weeks gestation by last menstrual period (LMP), consistent with 7-week ultrasound, estimated date of confinement (EDC) of 05/25/2019, presents with contractions every 4-5 minutes, which became stronger. Denies vaginal bleeding. She was actually scheduled for labor induction at the time she presented, but appeared to be in early labor. There was good movement. COURSE: The patient initiated care at 8 weeks gestation. Her first trimester blood pressure was 120/64, weight 185 pounds. The patient had a low lying placenta on her early ultrasounds and this resolved. She had no further issues. OBSTETRICAL HISTORY: 2015: 39 weeks, vaginal delivery, 7 pound 5 ounce male . 2018: 40 weeks, vaginal delivery, 8 pound 13 ounce male infant. She had three miscarriages. MEDICAL HISTORY: 1. Epilepsy. 2. Anxiety. 3. Asthma. ALLERGIES: BACTRIM. SURGERIES: Dilation and curettage (D and C) times one. The patient has a history of a herniated disc in her lumbar spine. SOCIAL HISTORY: The patient is . She lives in [place]. She denies cigarettes, alcohol, or drug use. FAMILY HISTORY: Noncontributory. PHYSICAL EXAMINATION: Blood pressure 124/74, pulse 84. She appears mildly uncomfortable. Head and neck exam: Normal. Lungs: Clear. Heart: Regular rate and rhythm. Abdomen: Nontender, gravid. heart tones: Category 1. Sterile vaginal exam: She is 2 cm, 80%, -2, posterior, soft, vertex. Contractions: Every 3-4 minutes, moderate intensity. Extremities: Nontender. LABS: Blood type B negative, Rubella immune, RPR nonreactive. Hepatitis B and C negative. HIV negative. ASSESSMENT: A 29-year-old 6, para 2 female at 40-1/7 weeks gestation, presents in early labor. PLAN: The patient is admitted on 05/26/2019.
--- NOTE | 2019-05-26 18:16 | DN ---
DATE: 05/26/2019 PREDELIVERY DIAGNOSIS: 40 weeks, early labor. POSTDELIVERY DIAGNOSIS: Delivered. PROCEDURE: Spontaneous vaginal delivery. POST ANESTHESIA CARE UNIT NURSE: Eric Ashby MD ANESTHESIA: Epidural. ESTIMATED BLOOD LOSS: 300 mL. FINDINGS: A 7-pound, 5-ounce female , scores 8 and 9. DELIVERY SUMMARY: After an approximately 10-minute second stage, the patient had spontaneous delivery of a 7-pound, 5-ounce female infant, scores 8 and 9, under epidural anesthesia. There was no nuchal cord. Late meconium was present. The patient was handed to the mother and cried immediately. The cord was doubly clamped and cut. The placenta delivered spontaneously and appeared to be intact. The patient received IV pitocin after delivery of the placenta. A first degree perineal laceration was repaired 2.0 chromic in the usual fashion. Sponge and needle counts were correct.
[2019-05-27] MEDS: ACETAMINOPHEN 500 MG TAB PO PRN ×2 (01:08→13:57)
[2019-05-27 05:59] VITALS: BP 120/88
[2019-05-27] MEDS ORDERED: PRENATAL VITAMINS CHEWABLE TABLET PO SCH (09:00)
[2019-05-27 15:00] VITALS: BP 128/82
== END 2019-05-27 18:40 | disposition home or self-care (01) | DRG 807 ==
LOC: OBSVTOIN 10:53 → M LDI 10:53 → M OBS 18:06
PROVIDERS: ADMIT Specialist; ATTEND Specialist
PROC: 10E0XZZ Delivery of Products of Conception, External Approach (ICD-10-PCS; principal; 2019-05-26)
PROC: 0HQ9XZZ Repair Perineum Skin, External Approach (ICD-10-PCS; 2019-05-26)
DX: O48.0 Post-term pregnancy (principal); Z37.0 Single live birth; Z3A.40 40 weeks gestation of pregnancy; O70.0 First degree perineal laceration during delivery

== ENCOUNTER 2020-03-02 12:50 | Day surgery (SDC) | payer OTHER ==
[2020-03-02] MEDS ORDERED: LIDOCAINE 2% 100MG/5ML SDV (FOR ANES.) As Ordered ONE (16:52)
[2020-03-02] MEDS ORDERED: ROCURONIUM BROMIDE 50 MG/5 ML VIAL As Ordered ONE (16:52)
[2020-03-02] MEDS ORDERED: propofoL 200 MG/20 ML VIAL As Ordered ONE (16:52)
[2020-03-02] MEDS ORDERED: MIDAZOLAM INJ 2MG/2ML VIAL (J2250 PER 1MG) As Ordered ONE (16:53)
[2020-03-02] MEDS ORDERED: fentaNYL 100 MCG/2 ML INJECTION (J3010) As Ordered ONE ×2 (16:53→19:43)
[2020-03-02] MEDS ORDERED: dexameTHASONE 4 MG/ML 1ML VIAL (J1100 PER 1MG) As Ordered ONE (16:53)
[2020-03-02] MEDS ORDERED: ONDANSETRON 4MG/2ML VIAL As Ordered ONE (16:53)
[2020-03-02] MEDS ORDERED: SUGAMMADEX SODIUM 500 MG/5 ML VIAL (BRIDION) As Ordered ONE (18:13)
[2020-03-02] MEDS ORDERED: BUPIVACAINE HCL 0.25% 30ML VIAL As Ordered ONE (18:45)
[2020-03-02] MEDS ORDERED: ACETAMINOPHEN 1000MG 100ML IV BTL (OFIRMEV) (J0131 PER 10MG) As Ordered ONE (20:05)
[2020-03-02] MEDS ORDERED: KETOROLAC 60MG 2ML VIAL As Ordered ONE (20:06)
[2020-03-02] MEDS ORDERED: METOCLOPRAMIDE INJ 10MG/2ML VIAL (J2765 PER 1) As Ordered ONE (20:09)
--- NOTE | 2020-04-26 09:40 | RO ---
DATE OF PROCEDURE: 03/02/2020 PREOPERATIVE DIAGNOSIS: Satisfied parity POSTOPERATIVE: Satisfied parity PROCEDURE: Laparoscopic bilaterally salpingectomy. SURGEON: Alphonso Myers MD DECORATING MACHINE TENDER: None. ANESTHESIA: General endotracheal SPECIMEN SENT TO PATHOLOGY: Bilateral fallopian tubes. ESTIMATED BLOOD LOSS: 5 ml FLUIDS REPLACED: 1500 ml lactated Ringers DRAINS: Rivera catheter. URINE OUTPUT 10 to 20 ml COMPLICATIONS: None. PREOPERATIVE ANTIBIOTICS INDICATED: None. INTRAOPERATIVE FINDINGS: Normal uterus and bilateral adnexa/ovaries. Possible endometriosis in the posterior cul-de-sac. INDICATIONS: The patient is 100% satisfied parity requesting permanent tubal sterilization after review of all control method options to include long- acting reversible contraception. PROCEDURE: The patient was counseled and consented on the risks, benefits, indications, alternatives to the procedure, informed consent was obtained. She was taken to the operating room with a IV running, placed on the operating table in the dorsal supine position. General anesthesia was administered and airway secured without any difficulty. She was placed in a low lithotomy position. She was prepared and draped in the normal sterile fashion. Time-out was performed per protocol. Attention was turned to the pelvis and the Rivera catheter was placed under sterile conditions. Sterile speculum was placed with good visualization of the cervix. The cervix was grasped with single-tooth tenaculum and downward traction was applied. A Zumi uterine manipulator was placed without any difficulty. Tenaculum was removed. No bleeding was noted. The sterile speculum was removed. A glove switch was performed and attention was turned to the abdomen. 25% Marcaine was injected through the umbilicus. 5 mm skin incision was made in the umbilicus with an 11 blade. A Veress needle was placed into the intraperitoneal cavity through this incision. Intraperitoneal placement was confirmed with the use of normal saline, positive drop test, negative return on aspiration. The opening pressure was 2 mmHg. The abdomen was insufflated with 2 liters of gas. The Veress needle was removed. A size 5 mm Xcel laparoscopic trocar was placed into the intraperitoneal cavity with findings noted above. No incidental bleeding or injury was noted. The two additional laparoscopic ports have been placed in the left lower abdomen through 5 mm incisions. These cannulas were also placed under direct visualization without any difficulty or complication. Attention was then turned to the left fallopian tube. The left fallopian tube was followed out to the fimbriated end and grasped and elevated. The underlying mesosalpinx was sequentially clamped, coagulated and transected with the 5 mm ligature device until the level of the cornu was reached. At the level of the cornu, the left fallopian tube was amputated by coagulating and transecting and the fallopian tube was taken through the cannula without any difficulty. Attention was turned to the right side. The right fallopian was followed out to the fimbriated end, grasped and elevated. Underlying mesosalpinx was sequentially clamped, coagulated and transecting with a 5 mm ligature device until the level of the cornu was reached. At the level of the cornu, the left fallopian tube was amputated by clamp, coagluating and transecting and the fallopian tube was taken through the cannula without any difficulty. Attention was turned to the right side. The right fallopian tube was followed out to fimbriated end, grasped and elevated. The underlying mesosalpinx was sequentially clamped, coagulated and transected. I put the 5 mm ligature device until the level of the cornu was reached and at the level of the cornu, the fallopian tube was amputated with the ligature device. The right fallopian tube was brought through the cannula without any difficulty. Both specimens were sent to the pathology for permanent section.Excellent hemostasis was noted throughout the pelvis. The gas was released from the abdomen. The patient was taken out of Trendelenburg. Cannulas were removed. Skin incisions were close with 4-0 Monocryl in subcuticular fashion and re-enforced with Dermabond. The attention was then turned back to the pelvis. The instruments were removed. The uterine manipulator was removed and the Rivera catheter was removed. Sponge, needle and instrument courts were correct per protocol. The patient tolerated the entire procedure very well. She was transferred to the PACU in good stable condition. edited: 05/28/2020 [id number] tkf CHAITANYA
[2020-04-29 08:13] LABS: HEMATOCRIT 36.3 % (36.0-47.0); HEMOGLOBIN 12.3 g/dl (12.0-15.5); MEAN CORPUSCULAR HEMOGLOBIN 30.4 pg (27.0-33.0); MEAN CORPUSCULAR HGB CONC 33.9 g/dl (32.0-36.5); MEAN CORPUSCULAR VOLUME 89.9 fl (80.0-96.0); PLATELET COUNT, AUTOMATED 200 10^3/uL (150-450); RED BLOOD COUNT 4.04 10^6/uL (4.00-5.40); WHITE BLOOD COUNT 4.5 10^3/uL (4.0-10.0)
== END 2020-03-02 21:45 | disposition home or self-care (01) ==
LOC: M SDC 12:50
PROVIDERS: ATTEND Obstetrics & Gynecology
DX: Z30.2 Encounter for sterilization (principal); E04.1 Nontoxic single thyroid nodule; J45.909 Unspecified asthma, uncomplicated; Z88.2 Allergy status to sulfonamides; Z79.899 Other long term (current) drug therapy
CPT/HCPCS: 58661; 84702; 84703; 85027; 86850; 86900; 86901; 88302; J0131; J1100; J1885; J2250; J2405; J2765; J3010

== ENCOUNTER → 2020-03-27 | Outpatient (REF) | payer OTHER | LOC: M SFHCWAGY 13:15 | PROVIDERS: ATTEND Advanced Practice Midwife | DX: Z12.4 Encounter for screening for malignant neoplasm of cervix (principal) ==

== ENCOUNTER → 2020-04-03 | Outpatient (CLI) | payer OTHER | LOC: M WUC 17:10 | PROVIDERS: ATTEND Advanced Practice Midwife | DX: E04.1 Nontoxic single thyroid nodule (principal) ==

== ENCOUNTER → 2020-04-25 | Outpatient (CLI) | payer OTHER ==
[2020-04-25 20:01] LABS: APPEARANCE, URINE CLEAR (CLEAR); BACTERIA, URINE AUTO NEGATIVE (NEGATIVE); BILIRUBIN, URINE AUTO NEGATIVE (NEGATIVE); BLOOD, URINE BLOOD NEGATIVE (NEGATIVE); COLOR, URINE YELLOW (YELLOW); GLUCOSE, URINE (UA) AUTO NEGATIVE (NEGATIVE); KETONE, URINE AUTO NEGATIVE (NEGATIVE); LEUKOCYTE ESTERASE, URINE AUTO TRACE (NEGATIVE); NITRITE, URINE AUTO NEGATIVE (NEGATIVE); PROTEIN, URINE AUTO NEGATIVE (NEGATIVE); RBC, URINE AUTO 2 /HPF (0-3); SPECIFIC GRAVITY URINE AUTO 1.011 (1.002-1.035); SQUAMOUS EPITHELIAL CELL UR AU 1 /HPF (0-6); UROBILINOGEN, URINE AUTO 0.2 mg/dL (0.0-2.0); WBC, URINE AUTO 7 /HPF (0-3)
[2020-04-25 20:03] LABS: BASO % 0.3 % (0.0-1.0); EOS # 0.1 10^3/uL (0.0-0.5); EOS % 1.4 % (0.0-3.0); HEMATOCRIT 38.7 % (36.0-47.0); HEMOGLOBIN 12.8 g/dl (12.0-15.5); LYMPH % 34.2 % (24.0-44.0); MEAN CORPUSCULAR HEMOGLOBIN 29.2 pg (27.0-33.0); MEAN CORPUSCULAR HGB CONC 33.1 g/dl (32.0-36.5); MEAN CORPUSCULAR VOLUME 88.2 fl (80.0-96.0); MONO # 0.5 10^3/uL (0.0-0.8); MONO % 8.2 % (0.0-5.0); NEUTROPHILS # 3.3 10^3/uL (1.5-8.5); NEUTROPHILS % 55.7 % (36.0-66.0); PLATELET COUNT, AUTOMATED 300 10^3/uL (150-450); RED BLOOD COUNT 4.39 10^6/uL (4.00-5.40); WHITE BLOOD COUNT 5.9 10^3/uL (4.0-10.0)
[2020-04-25 20:31] LABS: ALBUMIN 3.4 GM/DL (3.2-5.2); ALT/SGPT 39 U/L (12-78); BILIRUBIN,TOTAL 0.2 MG/DL (0.2-1.0); BLOOD UREA NITROGEN 12 MG/DL (7-18); CALCIUM LEVEL 8.8 MG/DL (8.5-10.1); CARBON DIOXIDE LEVEL 27 MEQ/L (21-32); CHLORIDE LEVEL 104 MEQ/L (98-107); CHOLESTEROL LEVEL 181 MG/DL (<200); CHOLESTEROL RISK RATIO 3.232 (<5); CREATININE FOR GFR 0.91 MG/DL (0.55-1.30); GLOMERULAR FILTRATION RATE > 60.0 (>60); GLUCOSE, FASTING 87 MG/DL (70-100); HCG, SERUM QUANTITATIVE < 1.0 MIU/ML; HDL CHOLESTEROL 56 MG/DL (>40); LDL CHOLESTEROL 95 MG/DL (<100); NON-HDL-C 125 MG/DL; POTASSIUM SERUM 4.5 MEQ/L (3.5-5.1); SODIUM LEVEL 136 MEQ/L (136-145); TOTAL PROTEIN 7.3 GM/DL (6.4-8.2); TRIGLYCERIDES LEVEL 152 MG/DL (<150)
== END ==
LOC: M WUC 16:54
PROVIDERS: ATTEND Physician Assistant
DX: L70.0 Acne vulgaris (principal)

== ENCOUNTER → 2020-05-14 | Outpatient (REF) | payer OTHER ==
[2020-05-14 22:25] LABS: APPEARANCE, URINE CLOUDY (CLEAR); BACTERIA, URINE AUTO 1+ (NEGATIVE); BILIRUBIN, URINE AUTO NEGATIVE (NEGATIVE); BLOOD, URINE BLOOD 1+ (NEGATIVE); COLOR, URINE YELLOW (YELLOW); GLUCOSE, URINE (UA) AUTO NEGATIVE (NEGATIVE); KETONE, URINE AUTO NEGATIVE (NEGATIVE); LEUKOCYTE ESTERASE, URINE AUTO 3+ (NEGATIVE); NITRITE, URINE AUTO NEGATIVE (NEGATIVE); PROTEIN, URINE AUTO NEGATIVE (NEGATIVE); RBC, URINE AUTO 2 /HPF (0-3); SPECIFIC GRAVITY URINE AUTO 1.003 (1.002-1.035); SQUAMOUS EPITHELIAL CELL UR AU 2 /HPF (0-6); UROBILINOGEN, URINE AUTO 0.2 mg/dL (0.0-2.0); WBC, URINE AUTO TNTC /HPF (0-3)
== END ==
LOC: M LAB REF 21:53
PROVIDERS: ATTEND Physician Assistant Medical
DX: N39.0 Urinary tract infection, site not specified (principal)

== ENCOUNTER → 2020-06-18 | Outpatient (CLI) | payer OTHER | LOC: M LABSMTC 14:25 | PROVIDERS: ATTEND Family Medicine | DX: Z20.828 Contact with and (suspected) exposure to other viral communicable diseases (principal) ==

== ENCOUNTER → 2020-07-02 | Outpatient (CLI) | payer OTHER ==
[2020-07-02 20:09] LABS: BASO % 0.3 % (0.0-1.0); EOS # 0.1 10^3/uL (0.0-0.5); EOS % 1.9 % (0.0-3.0); HEMATOCRIT 38.3 % (36.0-47.0); HEMOGLOBIN 12.7 g/dl (12.0-15.5); LYMPH # 2.3 10^3/uL (1.5-5.0); LYMPH % 36.5 % (24.0-44.0); MEAN CORPUSCULAR HEMOGLOBIN 29.5 pg (27.0-33.0); MEAN CORPUSCULAR HGB CONC 33.2 g/dl (32.0-36.5); MEAN CORPUSCULAR VOLUME 89.1 fl (80.0-96.0); MONO # 0.4 10^3/uL (0.0-0.8); MONO % 6.9 % (0.0-5.0); NEUTROPHILS # 3.4 10^3/uL (1.5-8.5); NEUTROPHILS % 54.1 % (36.0-66.0); PLATELET COUNT, AUTOMATED 242 10^3/uL (150-450); WHITE BLOOD COUNT 6.2 10^3/uL (4.0-10.0)
[2020-07-02 20:30] LABS: ALBUMIN 3.8 GM/DL (3.2-5.2); ALT/SGPT 39 U/L (12-78); BILIRUBIN,TOTAL 0.4 MG/DL (0.2-1.0); BLOOD UREA NITROGEN 9 MG/DL (7-18); CALCIUM LEVEL 8.7 MG/DL (8.5-10.1); CARBON DIOXIDE LEVEL 28 MEQ/L (21-32); CHLORIDE LEVEL 105 MEQ/L (98-107); CHOLESTEROL LEVEL 161 MG/DL (<200); CREATININE FOR GFR 0.82 MG/DL (0.55-1.30); GLOMERULAR FILTRATION RATE > 60.0 (>60); GLUCOSE, FASTING 86 MG/DL (70-100); HDL CHOLESTEROL 50 MG/DL (>40); LDL CHOLESTEROL 77 MG/DL (<100); NON-HDL-C 111 MG/DL; POTASSIUM SERUM 3.9 MEQ/L (3.5-5.1); SODIUM LEVEL 138 MEQ/L (136-145); TOTAL PROTEIN 7.3 GM/DL (6.4-8.2); TRIGLYCERIDES LEVEL 169 MG/DL (<150)
== END ==
LOC: M WUC 16:57
PROVIDERS: ATTEND Physician Assistant
DX: L70.0 Acne vulgaris (principal)

== ENCOUNTER → 2020-09-05 | Outpatient (CLI) | payer OTHER ==
[2020-09-05 11:27] LABS: ALBUMIN 3.9 GM/DL (3.2-5.2); ALT/SGPT 24 U/L (12-78); BILIRUBIN,DIRECT < 0.1 MG/DL (0.0-0.2); BILIRUBIN,TOTAL 0.6 MG/DL (0.2-1.0); TOTAL PROTEIN 7.4 GM/DL (6.4-8.2); TRIGLYCERIDES LEVEL 107 MG/DL (<150)
== END ==
LOC: M WUC 08:28
PROVIDERS: ATTEND Dermatology
DX: Z79.899 Other long term (current) drug therapy (principal)

== ENCOUNTER → 2020-12-03 | Outpatient (REF) | payer OTHER ==
[2020-12-03 18:41] LABS: APPEARANCE, URINE CLEAR (CLEAR); BACTERIA, URINE AUTO NEGATIVE (NEGATIVE); BILIRUBIN, URINE AUTO NEGATIVE (NEGATIVE); BLOOD, URINE BLOOD 1+ (NEGATIVE); COLOR, URINE YELLOW (YELLOW); GLUCOSE, URINE (UA) AUTO NEGATIVE (NEGATIVE); KETONE, URINE AUTO NEGATIVE (NEGATIVE); LEUKOCYTE ESTERASE, URINE AUTO NEGATIVE (NEGATIVE); NITRITE, URINE AUTO NEGATIVE (NEGATIVE); PROTEIN, URINE AUTO NEGATIVE (NEGATIVE); RBC, URINE AUTO 0 /HPF (0-3); SPECIFIC GRAVITY URINE AUTO 1.006 (1.002-1.035); SQUAMOUS EPITHELIAL CELL UR AU 1 /HPF (0-6); UROBILINOGEN, URINE AUTO 0.2 mg/dL (0.0-2.0); WBC, URINE AUTO 1 /HPF (0-3)
== END ==
LOC: M LAB REF 17:06
PROVIDERS: ATTEND Physician Assistant Medical
DX: N39.0 Urinary tract infection, site not specified (principal)

== ENCOUNTER → 2021-03-08 | Outpatient (CLI) | payer OTHER ==
--- NOTE | 2021-03-08 09:49 | REP ---
INDICATION: THYROID NODULE. COMPARISON: None. TECHNIQUE: Real-time sonographic evaluation of thyroid performed. FINDINGS: The thyroid lobes are normal in size. The right lobe measures 4.6 x 1.7 x 1.6 cm and the left lobe measures 4.3 x 1.8 x 1.1 cm. In the lower right lobe there is a nodule which measures 1.5 x 1.0 x 1.1 cm. This is solid with peripheral rim calcifications, and probable internal microcalcifications. Multiple subcentimeter nodules are seen in the left lobe, the largest is in the lower pole measuring 7 x 3 x 4 mm and 4 x 2 x 5 mm. IMPRESSION: Solitary right lobe nodule contains calcifications as discussed in detail above. According to TI-RADS criteria this is a TR 5 lesion for which ultrasound-guided FNA is recommended. Subcentimeter nodules in the left lobe are TR 4 lesions. Given their subcentimeter size, no FNA or follow-up is needed. <Electronically signed by Carroll Flores > 03/08/21 09
== END ==
LOC: M RAD 07:13
PROVIDERS: ATTEND Physician Assistant
DX: E04.1 Nontoxic single thyroid nodule (principal)

== ENCOUNTER → 2021-04-03 | Outpatient (CLI) | payer OTHER ==
[~2021-04-03] MED LIST changes: +FLON1SPR NARES; +HYDR-3490 PO; +LIDOCAINE 1% MDV 20ML VIAL As Ordered ONE; +LORA-243 PO; +SERT25TA85 PO
[2021-04-03 10:51] VITALS: BP 114/79
--- NOTE | 2021-04-03 14:09 | REP ---
INDICATION: RT THYROID NODULE. COMPARISON: None. TECHNIQUE: The procedure was performed under the direct supervision of Dr. Flores. The patient has a history of a 1.5 x 1 x 1.1 cm nodule in the right lobe of the thyroid seen on a previous ultrasound dated 03/08/2021. The risks and benefits of the procedure were explained to the patient and informed consent was obtained. The right thyroid nodule was localized using ultrasound guidance. The skin was prepped and draped in a sterile fashion. 7 mL of 1% lidocaine was used as a local anesthetic. Using ultrasound guidance 4 fine-needle aspirations were obtained using 25 gauge needles. The patient tolerated the procedure well and there were no immediate complications. After the appropriate amount to monitor convalescence the patient was discharged from the department. Estimated blood loss: Less than 1 mL FINDINGS: None IMPRESSION: Ultrasound-guided right thyroid biopsy. <Electronically signed by Delmar Vega > 04/03/21 1230 <Electronically signed by Carroll Flores > 04/03/21 [id number]
== END ==
LOC: M IRPRO 09:44
PROVIDERS: ATTEND Physician Assistant
DX: D34 Benign neoplasm of thyroid gland (principal)

== ENCOUNTER → 2021-06-06 | Outpatient (CLI) | payer OTHER ==
[~2021-06-06] MED LIST changes: -LIDOCAINE 1% MDV 20ML VIAL As Ordered ONE
--- NOTE | 2021-06-06 18:02 | REP ---
INDICATION: URINARY INCONT W/ UTI'S COMPARISON: None TECHNIQUE: Real time obando scale ultrasound examination using curved array transducer. FINDINGS: Right kidney measures 14.2 x 6.2 x 4.7 cm with suggestions for mild hydronephrosis. No nephrolithiasis, cystic or renal mass lesion. Left kidney measures 13.0 x 4.5 x 5.7 cm without hydronephrosis, nephrolithiasis, cystic or renal mass lesion. Bladder is normal in appearance and bilateral ureteral jets are identified. Prevoid bladder measures 381 cc. Postvoid bladder measures 36 cc. Postvoid residual equals 9%. IMPRESSION: Cannot exclude mild right hydronephrosis. <Electronically signed by Shai Zaragoza > 06/06/21 [id number]
--- NOTE | 2021-06-06 18:03 | REP ---
INDICATION: URINARY INCONT W/ UTI'S COMPARISON: None TECHNIQUE: Real time B-mode ultrasound examination using curved array transducer. FINDINGS: Bladder is normal in appearance without wall thickening or mass lesion. Bilateral ureteral jets are identified. Prevoid bladder measures 9.8 x 9.6 x 6.2 cm (381 cc). Postvoid bladder measures 5.2 x 5.5 x 1.9 cm (36 cc). Postvoid residual: 9% IMPRESSION: 1. Normal bladder ultrasound. <Electronically signed by Shai Zaragoza > 06/06/21 [id number]
== END ==
LOC: M RAD 16:46
PROVIDERS: ATTEND Nurse Practitioner Women's Health
DX: R32 Unspecified urinary incontinence (principal); N39.0 Urinary tract infection, site not specified

== ENCOUNTER → 2021-09-04 | Outpatient (REF) | payer OTHER ==
[2021-09-04 17:58] LABS: APPEARANCE, URINE CLEAR (CLEAR); BACTERIA, URINE AUTO 1+ (NEGATIVE); BILIRUBIN, URINE AUTO NEGATIVE (NEGATIVE); BLOOD, URINE BLOOD NEGATIVE (NEGATIVE); COLOR, URINE STRAW (YELLOW); GLUCOSE, URINE (UA) AUTO NEGATIVE (NEGATIVE); KETONE, URINE AUTO NEGATIVE (NEGATIVE); LEUKOCYTE ESTERASE, URINE AUTO 2+ (NEGATIVE); MUCUS, URINE SMALL (NEGATIVE); NITRITE, URINE AUTO NEGATIVE (NEGATIVE); PROTEIN, URINE AUTO NEGATIVE (NEGATIVE); RBC, URINE AUTO 2 /HPF (0-3); SPECIFIC GRAVITY URINE AUTO 1.011 (1.002-1.035); SQUAMOUS EPITHELIAL CELL UR AU 0 /HPF (0-6); UROBILINOGEN, URINE AUTO 0.2 mg/dL (0.0-2.0); WBC, URINE AUTO 89 /HPF (0-3)
== END ==
LOC: M SMT 16:39
PROVIDERS: ATTEND Specialist
DX: N39.0 Urinary tract infection, site not specified (principal)

== ENCOUNTER → 2022-03-23 | Outpatient (CLI) | payer OTHER ==
[2022-03-23 09:47] LABS: BASO % 0.4 % (0.0-1.0); EOS # 0.1 10^3/uL (0.0-0.5); HEMATOCRIT 39.4 % (36.0-47.0); HEMOGLOBIN 13.6 g/dl (12.0-15.5); LYMPH % 36.4 % (24.0-44.0); MEAN CORPUSCULAR HEMOGLOBIN 30.6 pg (27.0-33.0); MEAN CORPUSCULAR HGB CONC 34.5 g/dl (32.0-36.5); MEAN CORPUSCULAR VOLUME 88.7 fl (80.0-96.0); MONO # 0.4 10^3/uL (0.0-0.8); MONO % 6.5 % (2.0-8.0); NEUTROPHILS % 54.3 % (36.0-66.0); PLATELET COUNT, AUTOMATED 197 10^3/uL (150-450); RED BLOOD COUNT 4.44 10^6/uL (4.00-5.40); WHITE BLOOD COUNT 5.6 10^3/uL (4.0-10.0)
[2022-03-23 10:31] LABS: ALBUMIN 3.6 GM/DL (3.2-5.2); ALT/SGPT 21 U/L (12-78); BILIRUBIN,TOTAL 0.4 MG/DL (0.2-1.0); BLOOD UREA NITROGEN 12 MG/DL (7-18); CALCIUM LEVEL 8.7 MG/DL (8.5-10.1); CARBON DIOXIDE LEVEL 26 MEQ/L (21-32); CHLORIDE LEVEL 106 MEQ/L (98-107); CHOLESTEROL LEVEL 162 MG/DL (<200); CHOLESTEROL RISK RATIO 2.793 (<5); CREATININE FOR GFR 0.81 MG/DL (0.55-1.30); FREE T4 0.87 NG/DL (0.76-1.46); GLOMERULAR FILTRATION RATE > 60.0 (>60); GLUCOSE, FASTING 93 MG/DL (70-100); HDL CHOLESTEROL 58 MG/DL (>40); IRON (FE) 134 UG/DL (50-170); LDL CHOLESTEROL 80 MG/DL (<100); MAGNESIUM LEVEL 2.1 MG/DL (1.8-2.4); NON-HDL-C 104 MG/DL; PERCENT SATURATION 31.9 % (13.2-45.0); POTASSIUM SERUM 4.2 MEQ/L (3.5-5.1); SODIUM LEVEL 136 MEQ/L (136-145); THYROID STIMULATING HORMONE 0.837 uIU/ML (0.358-3.740); TOTAL IRON BINDING CAPACITY 420 UG/DL (250-450); TOTAL PROTEIN 7.3 GM/DL (6.4-8.2); TRIGLYCERIDES LEVEL 122 MG/DL (<150)
== END ==
LOC: M LAB 08:44
PROVIDERS: ATTEND Nurse Practitioner Adult Health
DX: Z13.220 Encounter for screening for lipoid disorders (principal); Z13.29 Encounter for screening for other suspected endocrine disorder; Z13.228 Encounter for screening for other metabolic disorders

== ENCOUNTER → 2022-04-29 | Outpatient (REF) | payer OTHER | LOC: M SFHCDERM 17:14 | PROVIDERS: ATTEND Physician Assistant | DX: L90.5 Scar conditions and fibrosis of skin (principal) ==

== ENCOUNTER → 2023-02-27 | Outpatient (CLI) | payer OTHER ==
[2023-02-27 13:35] LABS: BASO % 0.1 % (0.0-1.0); EOS % 0.1 % (0.0-3.0); HEMOGLOBIN 13.3 g/dl (12.0-15.5); LYMPH # 0.9 10^3/uL (1.5-5.0); LYMPH % 10.4 % (24.0-44.0); MEAN CORPUSCULAR HEMOGLOBIN 30.6 pg (27.0-33.0); MEAN CORPUSCULAR HGB CONC 34.1 g/dl (32.0-36.5); MEAN CORPUSCULAR VOLUME 89.7 fl (80.0-96.0); MONO # 0.2 10^3/uL (0.0-0.8); MONO % 2.7 % (2.0-8.0); NEUTROPHILS # 7.6 10^3/uL (1.5-8.5); NEUTROPHILS % 85.2 % (36.0-66.0); PLATELET COUNT, AUTOMATED 234 10^3/uL (150-450); RED BLOOD COUNT 4.35 10^6/uL (4.00-5.40); WHITE BLOOD COUNT 8.9 10^3/uL (4.0-10.0)
[2023-02-27 14:02] LABS: ALKALINE PHOSPHATASE 65 U/L (46-116); ALT/SGPT 20 U/L (7.0-40); AST/SGOT 14 U/L (<34); BILIRUBIN,TOTAL 0.4 MG/DL (0.3-1.2); BLOOD UREA NITROGEN 10 MG/DL (9-23); CALCIUM LEVEL 9.2 MG/DL (8.5-10.1); CARBON DIOXIDE LEVEL 27 MMOL/L (20-31); CHLORIDE LEVEL 105 MMOL/L (98-107); CREATININE FOR GFR 0.69 MG/DL (0.55-1.30); GLOMERULAR FILTRATION RATE > 60.0 (>60); GLUCOSE, FASTING 89 MG/DL (60-100); SODIUM LEVEL 140 MMOL/L (136-145); TOTAL PROTEIN 7.6 G/DL (5.7-8.2)
[2023-02-27 14:05] LABS: FREE T4 1.21 NG/DL (0.89-1.76); THYROID STIMULATING HORMONE 0.414 uIU/ML (0.55-4.78)
== END ==
LOC: M RAD 12:46
PROVIDERS: ATTEND Nurse Practitioner Adult Health
DX: E04.1 Nontoxic single thyroid nodule (principal)

== ENCOUNTER → 2023-10-13 | Outpatient (REF) | payer OTHER ==
[~2023-10-13] MED LIST changes: +LORA-1041 PO; -LORA-674 PO
== END ==
LOC: M SFHCWAGY 17:41
PROVIDERS: ATTEND Advanced Practice Midwife
DX: Z12.4 Encounter for screening for malignant neoplasm of cervix (principal)
CPT/HCPCS: 87624; G0123

== ENCOUNTER → 2023-12-22 | Outpatient (CLI) | payer OTHER | LOC: M PLAIMG 16:29 | PROVIDERS: ATTEND Family Medicine | DX: S00.31XA Abrasion of nose, initial encounter (principal); W18.30XA Fall on same level, unspecified, initial encounter; Y92.009 Unspecified place in unspecified non-institutional (private) residence as the place of occurrence of the external cause ==

== ENCOUNTER → 2025-04-19 | Outpatient (REF) | payer OTHER ==
[2025-04-21 15:57] LABS: HPV APTIMA Not Detected (Not Detected)
== END ==
LOC: M PLALAB 15:53
PROVIDERS: ATTEND Physician Assistant
DX: Z12.4 Encounter for screening for malignant neoplasm of cervix (principal)
CPT/HCPCS: 87624; G0123

== ENCOUNTER 2025-05-15 08:30 | Emergency (ER) | payer OTHER ==
[~2025-05-15] VITALS: Ht 180.3 cm; Wt 90.4 kg
[2025-05-15] MEDS ORDERED: METO37.5 PO (08:41)
[2025-05-15] MEDS: LIDOCAINE 5% PATCH TD ONE (09:40)
[2025-05-15] MEDS: KETOROLAC 30 MG/ML 1 ML VIAL IV ONE (09:40)
[2025-05-15 11:48] VITALS: BP 122/73; TEMP 98.1
[2025-05-15 11:49] VITALS: O2SAT 95
[2025-05-15] MEDS ORDERED: MEDR4PAK PO (12:04)
[2025-05-15] MEDS ORDERED: METH-1165 PO (12:04)
[2025-05-15] MEDS ORDERED: LIDO4CRE12 TOP (12:04)
== END 2025-05-15 12:17 | disposition home or self-care (01) ==
LOC: M ED 08:30
DX: M54.50 Low back pain, unspecified (principal); G40.909 Epilepsy, unspecified, not intractable, without status epilepticus; G90.A Postural orthostatic tachycardia syndrome [POTS]; Z88.2 Allergy status to sulfonamides; Z79.899 Other long term (current) drug therapy
CPT/HCPCS: 96374; 99284; J1885; J2919; J3360

== ENCOUNTER → 2025-06-28 | Outpatient (CLI) | payer OTHER ==
[~2025-06-28] MED LIST changes: +LIDO4CRE12 TOP; +MEDR4PAK PO; +METH-1165 PO; +METO37.5 PO
== END ==
LOC: M PLAIMG 15:43
PROVIDERS: ATTEND Family Medicine
DX: M51.86 Other intervertebral disc disorders, lumbar region (principal)